=== PATIENT | female | born 1955 | race Caucasian/White ===

== ENCOUNTER 2021-05-13 09:16 | Emergency (ER) | payer MEDICARE ==
[~2021-05-13] VITALS: Ht 160 cm; Wt 91.0 kg
[2021-05-13] MEDS ORDERED: METFORMIN500 M2 PO (10:02)
[2021-05-13] MEDS ORDERED: LISINOPRIL10 MG PO (10:02)
[2021-05-13] MEDS ORDERED: NOVOLIN R100 UNIT/1 (10:04)
[2021-05-13 11:44] VITALS: BP 148/68
== END 2021-05-13 11:44 | disposition home or self-care (01) ==
LOC: ED 09:16
DX: U07.1 COVID-19 (principal); I10 Essential (primary) hypertension; E11.9 Type 2 diabetes mellitus without complications; Z79.4 Long term (current) use of insulin; Z79.84 Long term (current) use of oral hypoglycemic drugs